=== PATIENT | female | born 1985 | race Caucasian/White ===

== ENCOUNTER 2020-01-28 02:32 | Emergency (ER) | payer OTHER ==
[~2020-01-28] VITALS: Wt 81.6 kg
[~2020-01-28 02:32] MED LIST: BUSPAR5 MG PO; COLACE100 MG PO; DOCUSATE SODIU100 MG PO; FEOSOL300 MG PO; IBUPROFEN600 MG PO; IRON FERROUS S325 MG PO; PNV PRENATAL HE1 TAB PO; TRAMADOL HCL50 MG PO
== END 2020-01-28 04:33 | disposition home or self-care (01) ==
LOC: ED 02:32
DX: B34.9 Viral infection, unspecified (principal); Z03.818 Encounter for observation for suspected exposure to other biological agents ruled out; R25.3 Fasciculation; F17.200 Nicotine dependence, unspecified, uncomplicated; Z79.899 Other long term (current) drug therapy

== ENCOUNTER 2021-05-03 07:09 | Emergency (ER) | payer OTHER ==
[~2021-05-03] VITALS: Wt 95.3 kg
[2021-05-03] MEDS ORDERED: Orphenadrine C100 MG PO (07:36)
[2021-05-03] MEDS ORDERED: PREDNISONE50 MG PO (07:36)
== END 2021-05-03 08:24 | disposition home or self-care (01) ==
LOC: ED 07:09
DX: M54.6 Pain in thoracic spine (principal); Z79.899 Other long term (current) drug therapy; X50.0XXA Overexertion from strenuous movement or load, initial encounter; Y93.89 Activity, other specified; Y92.89 Other specified places as the place of occurrence of the external cause; Y99.8 Other external cause status